=== PATIENT | female | born 1985 | race African-American/Black ===

== ENCOUNTER 2020-01-31 01:01 | Emergency (ER) | payer OTHER ==
[~2020-01-31] VITALS: Ht 152.4 cm; Wt 71.5 kg
[2020-01-31 01:01] VITALS: BP 128/74
[2020-01-31] MEDS ORDERED: DEXAMETHASONE 4 MG TABLET PO ONE (01:15)
[2020-01-31] MEDS ORDERED: PRED20TA PO (01:24)
[2020-01-31] MEDS ORDERED: ALBU2.5V8 IH (01:24)
--- NOTE | 2020-01-31 01:25 | PHYS DOC ---
Past History Past Medical History: Asthma Past Surgical History: No Surgical History Smoking: Non-smoker Alcohol Use: None Drug Use: None General Adult EDM: Chief Complaint: COUGH HPI: HPI: 34-year-old female presents with 5-day history of runny nose, nasal congestion, cough, and shortness of breath. Patient reports her symptoms have significantly worsened over the last 2 days. Patient reports has been taking Tylenol Cold and flu with minimal improvement. Denies any fever. Patient does report she has 8-month-old twins that have recently been sick however they have been tested for COVID and both came back negative on this past Tuesday. Denies trauma. Review of Systems: Review of Systems: Constitutional: Denies fever or chills Eyes: Denies redness or eye pain HENT: Reports nasal congestion and sore throat Respiratory: Reports cough and shortness of breath Cardiovascular: Denies chest pain or palpitations GI: Denies abdominal pain, nausea, or vomiting : Denies dysuria or hematuria Musculoskeletal: Denies back pain or joint pain Integument: Denies rash or skin lesions Neurologic: Denies headache, focal weakness or sensory changes Complete systems were reviewed and found to be within normal limits, except as documented in this note. Current Medications: Current Meds: Current Medications Medications (Trade) Dose Ordered Sig/Antony Start Time Stop Time Status Last Admin Dose Admin Dexamethasone (Decadron) 10 mg 1X ONCE 01/31/20 01:15 01/31/20 01:16 UNV Physical Exam: PE: Constitutional: Well developed, well nourished, no acute distress, non-toxic appearance HENT: Normocephalic, atraumatic, nasal congestion noted, TMs clear, pharynx normal, no tonsilar exudate Eyes: Conjunctiva normal, no discharge Neck: Normal range of motion, no tenderness, supple Lungs & Thorax: No respiratory distress, equal chest rise and fall Abdomen: Soft, no tenderness Skin: Warm, dry, no erythema, no rash Extremities: No tenderness, ROM intact, no edema Neurologic: Alert and oriented X 3, no focal deficits noted Psychologic: Affect normal, judgment normal EKG: EKG: [] Radiology/Procedures: Radiology/Procedures: PROCEDURE: CHEST AP ONLY AP chest x-ray HISTORY: Shortness of breath. FINDINGS: Heart size normal. Mediastinal silhouette is normal. No pneumothorax, pulmonary opacities or pleural effusions. Bones are unremarkable. IMPRESSION: No acute process. Electronically signed by: Geo Liu MD (01/31/2020 1:41 AM) [facility] [place] Course & Med Decision Making: Course & Med Decision Making Pertinent Labs and Imaging studies reviewed. (See chart for details) Patient presents with report of viral type symptoms. Patient reports sick contacts with her twin 8-month-old. Reports children had tested negative for COVID. Cannot exclude COVID at this time. COVID precautions in place. COVID testing pending. Symptomatic treatment provided with oral steroid. Chest x-ray without acute process. Patient stable for discharge with outpatient follow-up with PCP. Incentive spirometer provided with education. Discussed findings and plan with patient, who acknowledges understanding and agreement. COVID-19 CRITERIA: The patient was evaluated during the global COVID-19 pandemic, and that diagnosis was suspected/considered upon their initial presentation. Their evaluation, treatment and testing was consistent with current guidelines for patients who present with complaints or symptoms that may be related to COVID-19. Tabitha Disclaimer: Tabitha Disclaimer: This electronic medical record was generated, in whole or in part, using a voice recognition dictation system. Departure Departure: Impression: Primary Impression: Bronchitis Additional Impression: Suspected 2019 novel coronavirus infection Disposition: HOME/RESIDENCE PRIOR TO ADM Condition: STABLE Referrals: PCP,UNKNOWN (PCP) Patient Instructions: Acute Bronchitis, [id number], Incentive Spirometer Additional Instructions: You have been tested for or diagnosed with COVID-19. It is an infection caused by a new type of coronavirus. COVID-19 will cause cold-like or mild flu symptoms in most. It can cause more severe symptoms like problems breathing in some. There is no treatment for COVID-19. The body will clear the infection over time. Self-care will help to ease discomfort. Steps to Take: Self-Care Rest as needed. Healthy habits may help you feel better. Steps include: Choose healthy foods including fruits and vegetables. Drink water throughout the day. Get plenty of sleep each night. If you smoke, try to quit. It may ease breathing. Avoid alcohol. Keep Others Healthy The virus can spread to others. Droplets are released every time you sneeze or cough. The droplets can get into the mouth, nose, or eyes of people near you and lead to infection. To lower the chances of spreading COVID-19 to others: Stay at home until your doctor has said it is safe to leave. If you tested positive this will mean staying isolated until both of the following are true: At least 7 days have passed since the start of illness. You are free of fever for at least 72 hours without the use of medicine. During this time: - Avoid public areas, events, or transportation. Do not return to work or school until your doctor has said it is safe to do so. - Call ahead if you need to go to a medical center. Let them know you may have COVID-19. It will help them guide you where to go. They may also ask you to wear a facemask when you come to the office. - If you call for emergency medical services, let them know you may have COVID- 19. While at home: - Try to avoid close contact with others. Stay about 6 feet away. - If possible, spend most of your time in a separate room from others. - Use a face mask if you will be in close contact with others such as sharing a room or vehicle. - Have someone wipe down common surfaces in the home. Use household carbonation equipment operator every day on areas like doorknobs, counters, or sinks. - Cough or sneeze into a tissue. Throw the tissue away right after use. If a tissue is not available, cough or sneeze into your elbow. - Wash your hands often. Wash them after sneezing or coughing. Use soap and water and wash for at least 20 seconds. Alcohol based hand supervisor bottle house cleaners can be used if soap and water is not available. - Do not prepare food for others. Avoid sharing personal items like forks, spoons, or toothbrushes. - Avoid close contact with pets while you are sick. There is no evidence of the virus passing to pets. This is a safety step until more is known about this virus. Isolation can be frustrating. Social interaction can help. Keep in touch with friends and family through phone and tech options. You can still interact with others in your home, just keep a safe distance of about 6 feet. Follow-up: Your doctors office will check in with you to see if there are any changes in your health. You may be asked to keep track of symptoms to share with them. They will also let you know when you are clear to be in public again. Problems to Look Out For: Contact your doctor if your recovery is not going as you expect. Get emergency care if you have problems such as: - Trouble breathing - Nonstop chest pain or pressure - Changes in awareness, confusion, or problems waking - Lips or face have bluish color - Worsening of symptoms If you think you have an emergency, call for emergency medical services right away. As taken from [facility] Prednisone (PREDNISONE) 20 Mg Tablet 2 TAB PO DAILY for Bronchitis, #8 TAB Start this prescription tomorrow, Tuesday02/01/2020 Prov: SHERRIE GUNTER DO 01/31/20 Albuterol Sulfate (PROAIR HFA INHALER) 8.5 Gm Hfa.aer.ad 2 PUFF IH PRN Q4-6HRS PRN for wheezing, #1 INHALER 0 Refills Prov: SHERRIE GUNTER DO 01/31/20 SHERRIE GUNTER DO Jan 31, 2020 01:25
--- NOTE | 2020-01-31 01:44 | RAD ---
AP chest x-ray HISTORY: Shortness of breath. FINDINGS: Heart size normal. Mediastinal silhouette is normal. No pneumothorax, pulmonary opacities or pleural effusions. Bones are unremarkable. IMPRESSION: No acute process. Electronically signed by: Geo Liu MD (01/31/2020 1:41 AM) [facility]
== END 2020-01-31 01:58 | disposition home or self-care (01) ==
LOC: ER 01:01
DX: J40 Bronchitis, not specified as acute or chronic (principal); Z20.828 Contact with and (suspected) exposure to other viral communicable diseases
CPT/HCPCS: 71045; 99284; J8540; U0003

== ENCOUNTER 2021-04-09 17:44 | Emergency (ER) | payer OTHER ==
[~2021-04-09] VITALS: Ht 152.4 cm; Wt 71.5 kg
[~2021-04-09 17:44] MED LIST: ALBU2.5V8 IH; PRED20TA PO
--- NOTE | 2021-04-09 18:13 | PHYS DOC ---
Past History Past Medical History: Asthma Additional Past Medical Histor: "heart flutters" (DENA MAE SLEEPING ROOM CLEANER) Past Surgical History: No Surgical History (DENA MAE SLEEPING ROOM CLEANER) Smoking: Non-smoker Alcohol Use: None Drug Use: None (DENA MAE APRN) Adult General Chief Complaint Chief Complaint: CHEST PAIN HPI HPI Patient is a 35-year-old female patient with history of asthma, seasonal allergies, who presents to the ED today complaining of epigastric pain. Patient states symptoms began at 1500. She states she took naproxen with some relief to her symptoms but recurrence of the pain after a few hours. Denies any fever, reports coughing and nasal congestion that has been going on for a couple days. She states she did a Covid test on Tuesday this week which was negative. Patient is also complaining of vaginal bleeding. She states she started her cycle sometime this week, she thought the cycle was done after 2 days then today she started bleeding again. Patient denies bleeding more than normal. (DENA MAE SLEEPING ROOM CLEANER) Review of Systems Review of Systems Constitutional: Denies fever or chills [] Eyes: Denies change in visual acuity, redness, or eye pain [] HENT: Reports nasal congestion, denies sore throat [] Respiratory: Reports cough, denies shortness of breath [] Cardiovascular: Reports chest pain GI: Reports vaginal bleeding. Denies abdominal pain, nausea, vomiting, bloody stools or diarrhea [] : Denies dysuria or hematuria [] Musculoskeletal: Denies back pain or joint pain [] Integument: Denies rash or skin lesions [] Neurologic: Denies headache, focal weakness or sensory changes [] All other systems were reviewed and found to be within normal limits, except as documented in this note. (DENA MAE SLEEPING ROOM CLEANER) Current Medications Current Medications Current Medications Medications (Trade) Dose Ordered Sig/Antony Start Time Stop Time Status Last Admin Dose Admin Acetaminophen (Tylenol) 500 mg 1X ONCE 04/09/21 18:15 04/09/21 18:16 UNV Aspirin (Jennifer Aspirin) 325 mg 1X ONCE 04/09/21 18:15 04/09/21 18:16 UNV Multi-Ingredient Mouthwash/Gargle (Gi Cocktail) 20 ml 1X ONCE 04/09/21 18:15 04/09/21 18:16 UNV Nitroglycerin (Nitrostat) 0.4 mg PRN Q5MIN PRN 04/09/21 18:15 04/10/21 18:14 UNV (DENA MAE SLEEPING ROOM CLEANER) Allergies Allergies Allergies Coded Allergies Type Severity Reaction Last Updated Verified No Known Allergies Allergy Unknown 04/09/21 Yes (DENA MAE SLEEPING ROOM CLEANER) Physical Exam Physical Exam Constitutional: Well developed, well nourished, no acute distress, non-toxic appearance. [] HENT: Normocephalic, atraumatic, bilateral external ears normal, oropharynx moist, no oral exudates, patient sounds congested nasally Eyes: PERRLA, EOMI, conjunctiva normal, no discharge. [] Neck: Normal range of motion, no tenderness, supple, no stridor. [] Cardiovascular:Heart rate regular rhythm, no murmur [] Lungs & Thorax: Bilateral breath sounds clear to auscultation [] Abdomen: Bowel sounds normal, soft, no tenderness, no masses, no pulsatile masses. [] Skin: Warm, dry, no erythema, no rash. [] Back: No tenderness, no CVA tenderness. [] Extremities: No tenderness, no cyanosis, no clubbing, ROM intact, no edema. [] Neurologic: Alert and oriented X 3, normal motor function, normal sensory function, no focal deficits noted. [] Psychologic: Affect normal, judgement normal, mood normal. [] (DENA MAE SLEEPING ROOM CLEANER) Current Patient Data Vital Signs Vital Signs Date Time Temp Pulse Resp B/P (MAP) Pulse Ox O2 Delivery O2 Flow Rate FiO2 04/09/21 17:54 99.5 82 28 136/87 (103) 100 Room Air (DENA MAE SLEEPING ROOM CLEANER) EKG EKG [address] Gunter sinus rhythm heart rate 81 no STEMI [] (DENA MAE SLEEPING ROOM CLEANER) Radiology/Procedures Radiology/Procedures []PROCEDURE: ACUTE ABDOMEN SERIES Abdominal Series dated 04/09/2021. No comparison available. Clinical Indication: Abdominal pain. Findings: Single upright PA view the chest shows normal heart and mediastinal contours. The lungs are clear without focal consolidation. Vascular interstitium is within normal limits. Flat and upright views of the abdomen show nondilated gas filled loops of bowel. No air-fluid level on the upright view. No abnormal calcifications are identified. There is no evidence of pneumoperitoneum. Impression chest: No acute radiographic abnormality. Impression abdomen: Non-obstructive bowel gas pattern. Electronically signed by: Conner Roth MD (04/09/2021 7:03 PM) [facility] [place] DICTATED AND SIGNED BY: CONNER ROTH MD DATE: 04/09/211900 CC: ASAD SANTAMARIA DO; EMERGENCY,DEPARTMENT; DENA AME APRN ~MTH0 0 (DENA MAE APRN) Heart Score C/O Chest Pain: Yes HEART Score for Chest Pain: HEART Score for Chest Pain Response (Comments) Value History Slighlty/Non-Suspicious 0 ECG Normal 0 Age < 45 0 Risk Factors No Risk Factors 0 Troponin < Normal Limit 0 Total 0 Risk Factors: Risk Factors: DM, Current or recent (<one month) smoker, HTN, HLP, family history of CAD, obesity. Risk Scores: Risk Factors: DM, Current or recent (<one month) smoker, HTN, HLP, family h istory of CAD, obesity. (DENA MAE APRN) Course & Med Decision Making Course & Med Decision Making Pertinent Labs and Imaging studies reviewed. (See chart for details) This is a 35-year-old female patient presenting to the ED today complaining of epigastric pain, symptoms began at 1500. Patient tried naproxen with no relief. Patient is also complaining of some dysfunctional uterine bleeding. She states she started her cycle sometime this week, she thought the cycle was done after 2 days then today she started bleeding again. EKG is negative, high-sensitivity troponin is normal, CBC with a WBC of 11.1, CMP with no acute findings, UA negative for infection. PCR Covid test is pending. PERC score 0, Heart score 0. Acute abdominal series noted for nonobstructive gas pattern. Patient was encouraged to use [id number] Gas- X and constipation medicines. Follow-up with PCP in 1 week. She preferred to go home, second troponin not done. Follow-up with [facility] for dysfunctional uterine bleeding (DENA MAE APRN) Dragon Disclaimer Dragon Disclaimer This electronic medical record was generated, in whole or in part, using a voice recognition dictation system. (DENA MAE APRN) PERC Rule for PE PERC Rule for PE Response (Comments) Value Age > 50: No 0 HR > 100: No 0 Sa02 on room air <95%: No 0 Unilateral leg swelling: No 0 Hemoptysis: No 0 Recent surgery or trauma: No 0 Prior PE or DVT: No 0 Hormone use: No 0 Total 0 Departure Departure: Impression: Primary Impression: Dysfunctional uterine bleeding Additional Impressions: Fever Constipation Person under investigation for COVID-19 URI (upper respiratory infection) Disposition: HOME / SELF CARE / HOMELESS Condition: STABLE Referrals: ASAD SANTAMARIA DO (PCP) followup in one week Patient Instructions: Constipation, Adult, Upper Respiratory Infection, Adult, Gibv-fl-[id number], Uterine Bleeding, Dysfunctional, [id number] Additional Instructions: You were evaluated in the emergency room, your cardiac work-up is negative for any acute findings. You are noted to have gas and stool in your colon. We encourage you to increase your dietary fiber intake, increase your water intake, consider taking magnesium citrate tomorrow morning. Also take MiraLAX. Follow-up with your doctor next week. You have a pending covid 19 PCR test. We will call you when results come back. Quarantine yourself until you get results from us Scripts Polyethylene Glycol 3350 (MIRALAX) 119 Gm Powder 17 GM PO DAILY for constipation, #255 GM 0 Refills dissolve in water Prov: DENA MAE APRN 04/09/21 Simethicone (GAS-X ULTRA STRENGTH) 180 Mg Capsule 180 MG PO TID PRN PRN for GAS / BLOATING, #10 CAP Prov: DENA MAE APRN 04/09/21 Magnesium Citrate (MAGNESIUM CITRATE) 296 Ml Solution 296 ML PO ONCE, #296 ML Prov: DENA MAE APRN 04/09/21 Attending Signature Attending Signature I have reviewed the PA/RIVET TOSSER's note and plan of care. I was available for consultation as needed during the patient's visit in the emergency department. I agree with the clinical impression, plan, and disposition. (CONNER GUNTER DO) Problem Qualifiers Additional Impressions: Fever Fever type: unspecified Qualified Codes: R50.9 - Fever, unspecified Constipation Constipation type: unspecified constipation type Qualified Codes: K59.00 - Constipation, unspecified URI (upper respiratory infection) URI type: unspecified URI Qualified Codes: J06.9 - Acute upper respiratory infection, unspecified DENA MAE APRN Apr 09, 2021 18:13 CONNER GUNTER DO Apr 09, 2021 21:03
[2021-04-09] MEDS ORDERED: LIDO:MAALOX 1:1 20 ML SINGLE DOSE. PO ONE (18:15)
[2021-04-09] MEDS ORDERED: ACETAMINOPHEN 500 MG TABLET PO ONE (18:15)
[2021-04-09] MEDS ORDERED: ASPIRIN 325 MG TABLET PO ONE (18:15)
[2021-04-09] MEDS ORDERED: NITROGLYCERIN SUBLINGUAL 0.4 MG BOTTLE OF 25. SL PRN (18:15)
[2021-04-09 18:33] LABS: BASO # 0.1 x10^3/uL (0.0-0.2); BASO % 1 % (0-3); EOS # 0.2 x10^3/uL (0.0-0.7); EOS % 2 % (0-3); HEMATOCRIT 36.6 % (36.0-47.0); LYMPH % 8 % (24-48); MEAN CORPUSCULAR HEMOGLOBIN 26 pg (25-35); MEAN CORPUSCULAR HGB CONC 33 g/dL (31-37); MEAN CORPUSCULAR VOLUME 80 fL (79-100); MONO # 0.6 x10^3/uL (0.0-1.1); MONO % 5 % (0-9); NEUT # 9.9 x10^3uL (1.8-7.7); NEUT % 85 % (31-73); PLATELET COUNT 274 x10^3/uL (140-400); RED BLOOD COUNT 4.59 x10^6/uL (3.50-5.40); RED CELL DISTRIBUTION WIDTH 12.9 % (11.5-14.5); WHITE BLOOD COUNT 11.7 x10^3/uL (4.0-11.0)
[2021-04-09 18:42] LABS: ANION GAP 10 (6-14); BLOOD UREA NITROGEN 14 mg/dL (7-20); BUN/CREATININE RATIO 14 (6-20); CALCIUM 8.7 mg/dL (8.5-10.1); CARBON DIOXIDE 26 mmol/L (21-32); CHLORIDE 104 mmol/L (98-107); GFR 75.5; GLUCOSE 108 mg/dL (70-99); POTASSIUM 3.8 mmol/L (3.5-5.1); SODIUM 140 mmol/L (136-145)
[2021-04-09 18:57] LABS: ALBUMIN 3.9 g/dL (3.4-5.0); ALK PHOS 73 U/L (46-116); ALT (SGPT) 39 U/L (14-59); AST (SGOT) 45 U/L (15-37); MAGNESIUM 2.2 mg/dL (1.8-2.4); TOTAL BILIRUBIN 0.6 mg/dL (0.2-1.0); TOTAL PROTEIN 7.7 g/dL (6.4-8.2)
--- NOTE | 2021-04-09 19:06 | RAD ---
Abdominal Series dated 04/09/2021. No comparison available. Clinical Indication: Abdominal pain. Findings: Single upright PA view the chest shows normal heart and mediastinal contours. The lungs are clear wit hout focal consolidation. Vascular interstitium is within normal limits. Flat and upright views of the abdomen show nondilated gas filled loops of bowel. No air-fluid level o n the upright view. No abnormal calcifications are identified. There is no evidence of pneumoperitone um. Impression chest: No acute radiographic abnormality. Impression abdomen: Non-obstructive bowel gas pattern. Electronically signed by: Conner Roth MD (04/09/2021 7:03 PM) [facility]
[2021-04-09 19:21] LABS: BARBITURATES NEG (NEG); BENZODIAZEPINES NEG (NEG); CANNABINOIDS NEG (NEG); COCAINE NEG (NEG); METHADONE NEG (NEG); OPIATES NEG (NEG); PHENCYCLIDINE NEG (NEG)
[2021-04-09 19:22] LABS: AMPHETAMINE/METHAMPHETAMINE NEG (NEG)
[2021-04-09 19:27] LABS: BACTERIA,URINE 0 /HPF (0-FEW); BILIRUBIN,URINE NEG (NEG); CLARITY,URINE CLEAR; COLOR,URINE YELLOW; GLUCOSE,URINE NEG (NEG); NITRITE,URINE NEG (NEG); RBC,URINE OCC /HPF (0-2); SQUAMOUS EPITHELIAL CELL,UR FEW /LPF; UROBILINOGEN,URINE 0.2 mg/dL (0.2 mg/dL); WBC,URINE OCC /HPF (0-4)
[2021-04-09] MEDS ORDERED: SIMETHICONE 80 MG TAB.CHEW PO STA (19:56)
[2021-04-09] MEDS ORDERED: SIME180C4 PO (19:58)
[2021-04-09] MEDS ORDERED: POLY119P4 PO (19:58)
[2021-04-09] MEDS ORDERED: MAGN296S68 PO (19:58)
[2021-04-09] MEDS ORDERED: MAGNESIUM HYDROXIDE 2,400 MG/30 ML ORAL.SUSP. PO ONE (20:00)
[2021-04-09 20:06] VITALS: BP 130/91
--- NOTE | 2021-04-10 07:27 | EKG ---
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
== END 2021-04-09 20:20 | disposition home or self-care (01) ==
LOC: ER 17:44
DX: N93.8 Other specified abnormal uterine and vaginal bleeding (principal); K59.00 Constipation, unspecified; R06.9 Unspecified abnormalities of breathing; Z20.822 Contact with and (suspected) exposure to COVID-19
CPT/HCPCS: 74022; 80053; 80307; 81001; 81025; 82553; 83735; 83880; 84443; 84484; 85025; 93005; 99285; C9803; U0003